=== PATIENT | female | born 1990 | race Hispanic/Latino ===

== ENCOUNTER 2023-12-24 00:14 | Emergency (ER) | payer OTHER, SELFPAY ==
[2023-12-24 00:16] VITALS: BP 100/66; BMI 42.6
--- NOTE | 2023-12-24 00:22 | ED.GENMED ---
History of Present Illness
General
Chief Complaint: Overdose Unintentional
Source: patient
Time Seen by Provider: 12/24/23 00:16
History of Present Illness
History of Present Illness:
33-year-old female presents to the emergency room because she feels nauseous, dizzy, numb all over. Patient consumed a chocolate marijuana edible at about 9 PM. She does not use marijuana before. She also was experiencing palpitations. 911 was
called. The patient be tachycardic with admission for on monitor. Emergent converted to sinus rhythm. She was given 4 Zofran IM en route.
Phy Exam
Physical Exam
Physical Exam:
General: Awake, Alert, Oriented X3. Appears stoned.
Vitals: unremarkable
Head: Atraumatic
Eyes: Pupils equal, EOMI
Throat: Airway intact, no exudates
Neck: Trachea midline
Lungs: Clear and equal b/l
Heart: Regular rate, no murmurs
Abd: Soft, Nontender, No pulsatile mass
Neuro: Nonfocal
Skin: Warm, dry, no rash
Extremities: pulses equal b/l, no edema
Course
Orders/Labs/Results
Orders:
Orders
12/24/23 00:22
Test Result ONCE
12/24/23 00:32
HCG, Serum Qualitative Screen Urgent
Vital Signs
Initial and Last Documented VS:
Initial Vital Signs
Temp Pulse Resp BP Pulse Ox
98.3 F 98 22 100/66 95
12/24/23 00:16 12/24/23 00:16 12/24/23 00:16 12/24/23 00:16 12/24/23 00:16
Last Documented Vital Signs
Temp Pulse Resp BP Pulse Ox
98.3 F 71 19 110/68 92
12/24/23 00:16 12/24/23 04:45 12/24/23 04:45 12/24/23 04:00 12/24/23 04:45
MDM/Problems Addressed
Differential Diagnosis Includes:
THC overdose, surreptitious coingestions
MDM/Problems Addressed:
Patient presents with palpitations, nausea and feeling poorly after consuming THC laced chocolate. Patient hemodynamically stable here in the emergency room. She felt better after Zofran. She was observed for an extended period time and is
feeling much better. Patient stable for discharge home.
*Pulse Oximetry
Patient hypoxic: no
*Critical Care Note
Total Time (30-74mins, 75-104mins- exclusive of procedures): Not Applicable
ED Attending Note
-
Portions of this chart may have been created with voice recognition software.� Occasional wrong word or��sound alike� substitutions may have occurred due to the inherent limitations of voice recognition software.
Discharge Plan
Departure
Patient Disposition: Home (Routine Discharge)
Date of Disposition: 12/24/23
Time of Disposition: 04:59
Patient with high blood pressure during this ER visit?: No
Condition: Good
Discharge Problem:
Accidental marijuana overdose
Instructions: Marijuana
Referrals:
NONE,* [Family Provider] -
Interventions
Interventions:
*Risk Screen - Suicide Last Done: 12/24/23 00:16
*General Assessment Last Done: 12/24/23 00:16
*Neglect/Abuse Screening Last Done: 12/24/23 00:16
ED- Cardiac Assessment Last Done: 12/24/23 00:35
ED- Neurological Assessment Last Done: 12/24/23 00:35
ED-Psychological Assessment Last Done: 12/24/23 00:35
ED- Pulmonary Assessment Last Done: 12/24/23 00:35
Discharge Date and Time
Print Language: BELARUSIAN
[2023-12-24 01:01] LABS: HCG, Serum Qualitative Screen Negative
[2023-12-24 01:04] VITALS: BP 123/83
[2023-12-24 02:00] VITALS: BP 104/68
[2023-12-24 03:00] VITALS: BP 108/68
[2023-12-24 04:00] VITALS: BP 110/68
[2023-12-24 05:00] VITALS: BP 106/62
== END 2023-12-24 05:40 | disposition home or self-care (01) ==
LOC: EMR 00:14
PROVIDERS: EMERGENCY PHYSICIAN Emergency Medicine
DX: T40.711A Poisoning by cannabis, accidental (unintentional), initial encounter (principal); R00.2 Palpitations; R11.0 Nausea; R42 Dizziness and giddiness; R00.0 Tachycardia, unspecified; R20.0 Anesthesia of skin
CPT/HCPCS: 99283; 84703